=== PATIENT | female | born 1955 | race Caucasian/White ===

== ENCOUNTER 2016-09-09 11:29 | Emergency (ER) | payer OTHER ==
[2016-09-09 12:22] LABS: EOSINOPHIL 0.6 % (0-5); HCT 49.8 % (37.0-47.0); HGB 16.9 g/dl (12.5-16.0); LYMPHOCYTE 17.9 % (15-48); MCH 33.5 pg (25.0-31.0); MCHC 33.9 g/dL (32.0-36.0); MCV 98.6 fL (78.0-100.0); MPV 9.3 fL (6.0-9.5); NEUTROPHIL 62.5 % (41-80); PLT 146 K/uL (150-400); RBC 5.05 M/uL (4.20-5.40); RDW 16.2 % (11.5-14.0); WBC 4.9 K/uL (4.0-10.5)
[2016-09-09 12:37] LABS: CREATININE 0.7 mg/dL (0.5-1.0); POTASSIUM 2.6 mmol/L (3.5-5.1)
[2016-09-09 12:43] LABS: LACTIC ACID 2.9 mmol/L (0.5-2.2)
[2016-09-09 15:17] LABS: BILIRUBIN 2+ mg/dL (NEGATIVE); BLOOD 1+ Ery/uL (NEGATIVE); CLARITY CLEAR (CLEAR); GLUCOSE (U) NORMAL (NORMAL); KETONE (U) 3+ (LARGE) mg/dL (NEGATIVE); LEUKOCYTES NEGATIVE Leu/uL (NEGATIVE); NITRITE NEGATIVE (NEGATIVE); PROTEIN 2+ mg/dL (NEGATIVE); SPECIFIC GRAVITY 1.015 (1.001-1.030)
[2016-09-09 15:18] LABS: COLOR AMBER (YELLOW)
[2016-09-09 15:25] LABS: AMORPHOUS URATES CRYSTALS TRACE; BACTERIA 1+
[2016-09-09 15:26] LABS: GRANULAR CASTS MODERATE
[2016-09-09 19:45] LABS: ALBUMIN 4.2 g/dL (3.4-4.8); BILIRUBIN - DIRECT 0.5 mg/dL (0.0-0.2); BILIRUBIN - TOTAL 2.5 mg/dL (0.1-1.0); GLOBULIN (CALCULATION) 3.3 g/dL (2.2-4.2); TOTAL PROTEIN 7.5 g/dL (6.4-8.3)
== END 2016-09-10 00:46 | disposition other institution (70) ==
LOC: FER 11:29 → FTCU 17:10 → FER 17:10 → FTCU 09-10 00:46
PROVIDERS: Emergency Medicine
DX: I73.9 Peripheral vascular disease, unspecified (principal); E87.6 Hypokalemia; F10.239 Alcohol dependence with withdrawal, unspecified; I10 Essential (primary) hypertension; J44.9 Chronic obstructive pulmonary disease, unspecified; F17.210 Nicotine dependence, cigarettes, uncomplicated; F41.9 Anxiety disorder, unspecified; F32.9 Major depressive disorder, single episode, unspecified
CPT/HCPCS: 36415; 36600; 71010; 80048; 80076; 81001; 82550; 82803; 83605; 85025; 93922; J2060; J3411; J3475

== ENCOUNTER 2020-07-10 15:35 | Inpatient (IN) | payer MEDICARE ==
[~2020-07-10 15:35] MED LIST: ALBUTEROL2.5 MG/3 M NEB; ALENDRONATE SOD70 MG PO; ASPIRIN CHEWABL81 MG PO; BREO ELLIPTA 11 EACH INH; CLARITIN10 MG PO; COZAAR50 MG PO; DULERA 100 MCG8.8 GM INH; DUONEB 2.5-0.5M1 AMP INH; FUROSEMIDE 20MG20 MG PO; K-DUR20 MEQ PO; MEDROL 4MG DOSEP4 MG PO; MIRALAX17 GM PO; NIFEREX150 MG PO; NORCO 5-325 TA1 EACH PO; PANTOPRAZOLE SODIUM PO; PERCOCET 5-3251 EACH PO; PLAVIX75 MG PO; SINGULAIR10 MG PO; TRAZODONE 50MG50 MG PO; ULTRAM50 MG PO; VENTOLIN (2.5 MG/3 M INH; VENTOLIN HFA IN18 GM INH; VITAMIN D3 PO; ZOLOFT50 MG PO; ZOLPIDEM TARTRAT5 MG PO
[2020-07-10 16:17] LABS: BASOPHIL 0.5 % (0-2); EOSINOPHIL 1.3 % (0-7); HGB 11.8 g/dl (12.5-16.0); LYMPHOCYTE 8.6 % (15-48); MCH 28.2 pg (25.0-31.0); MCHC 30.3 g/dL (32.0-36.0); MCV 93.1 fL (78.0-100.0); MONOCYTE 12.1 % (0-12); MPV 10.5 fL (6.0-9.5); NRBC 0; PLT 338 K/uL (150-400); RBC 4.19 M/uL (4.20-5.40); RDW 16.2 % (11.5-14.0); WBC 5.9 K/uL (4.0-10.5)
[2020-07-10 16:20] LABS: INR 1.19 (0.9-1.2); PROTHROMBIN TIME 14.3 SECONDS (11.4-13.6)
[2020-07-10 16:32] LABS: LACTIC ACID 1.3 mmol/L (0.4-1.9)
[2020-07-10 16:40] LABS: ALBUMIN 2.7 g/dL (3.4-5.0); BILIRUBIN - TOTAL 0.4 mg/dL (0.2-1.0); BUN/CREAT RATIO (CALC) 11.5 RATIO; CREATININE 0.52 mg/dL (0.51-0.95); POTASSIUM 2.8 mmol/L (3.5-5.1); PRO-BNP 801 pg/mL (<125); TOTAL PROTEIN 6.7 g/dL (6.4-8.2)
[2020-07-10 20:48] LABS: CORONAVIRUS 2019 SARS-COV-2 NEGATIVE (NEGATIVE); INFLUENZA A NAA NEGATIVE (NEGATIVE)
[2020-07-11 01:13] LABS: BILIRUBIN NEGATIVE (NEGATIVE); BLOOD TRACE-INTACT Ery/uL (NEGATIVE); CLARITY CLEAR (CLEAR); COLOR YELLOW (YELLOW); GLUCOSE (U) NORMAL (NORMAL); LEUKOCYTES NEGATIVE Leu/uL (NEGATIVE); NITRITE POSITIVE (NEGATIVE); PROTEIN NEGATIVE (NEGATIVE); pH 6.5 (5.0-9.0)
[2020-07-11 01:18] LABS: BACTERIA 2+
[2020-07-11 03:10] LABS: BASOPHIL 0.3 % (0-2); EOSINOPHIL 0 % (0-7); HCT 33.7 % (37.0-47.0); HGB 10.3 g/dl (12.5-16.0); LYMPHOCYTE 5.5 % (15-48); MCH 27.9 pg (25.0-31.0); MCHC 30.6 g/dL (32.0-36.0); MCV 91.3 fL (78.0-100.0); MONOCYTE 2.4 % (0-12); MPV 10.8 fL (6.0-9.5); NEUTROPHIL 91.5 % (41-80); NRBC 0; PLT 295 K/uL (150-400); RBC 3.69 M/uL (4.20-5.40); RDW 16.1 % (11.5-14.0)
[2020-07-11 03:18] LABS: WBC 3.3 K/uL (4.0-10.5)
[2020-07-11 03:26] LABS: BUN/CREAT RATIO (CALC) 13.3 RATIO; CREATININE 0.45 mg/dL (0.51-0.95)
[2020-07-11 03:54] LABS: POTASSIUM 4.3 mmol/L (3.5-5.1)
[2020-07-11] MEDS ORDERED: PROTONIX 40MG T40 MG PO (09:21)
[2020-07-11] MEDS ORDERED: CLARITIN10 MG PO (09:21)
[2020-07-11] MEDS ORDERED: VITAMIN D PO (09:23)
[2020-07-12 08:48] LABS: BASOPHIL 0.1 % (0-2); EOSINOPHIL 0.1 % (0-7); HGB 10.3 g/dl (12.5-16.0); LYMPHOCYTE 4.1 % (15-48); MCH 27.8 pg (25.0-31.0); MCHC 30.3 g/dL (32.0-36.0); MCV 91.6 fL (78.0-100.0); MONOCYTE 9.5 % (0-12); MPV 10.7 fL (6.0-9.5); NEUTROPHIL 85.6 % (41-80); NRBC 0; PLT 370 K/uL (150-400); RBC 3.71 M/uL (4.20-5.40); RDW 16.6 % (11.5-14.0)
[2020-07-12 08:50] LABS: WBC 8.7 K/uL (4.0-10.5)
[2020-07-12 09:05] LABS: BUN/CREAT RATIO (CALC) 17.6 RATIO; CREATININE 0.51 mg/dL (0.51-0.95)
--- NOTE | 2020-07-12 15:41 | NUR ---
MET WITH PT. PT. RESIDES IN HER OWN APT. AT [facility]. SHE HAS RECENTLY BEEN ADMITTED TO [facility]. SHE HAS A ROLLATOR, ELECTRIC SCOOTER, ANTOINETTEE. SHE STATES THAT HER BROTHER, MARLENE BANEGAS, WILL PICK HER UP FROM THE HOSPITAL. SHE ALSO RECEIVES MOM'S MEALS. SHE ALSO HAS A SISTER AT [place] WHO TRIES TO HELP WITH FOOD. SHE IS ELDERLY AND IT IS HARD FOR HER BUT SHE DOES TRY. DISCUSSED WITH PT. REGARDING GOING TO A [facility] FACILITY, BUT SHE DECLINES. SHE STATES THAT SHE WANTS TO RETURN HOME. ADVISED HER THAT IF SHE RECONSIDERS TO CONTACT HER HOME MEALT AND THEY WILL ASSIST HER. REFERRAL FOR 06/18 AND A TRAVEL O2 TANK SENT TO [facility] THROUGH [facility].
--- NOTE | 2020-07-12 16:14 | NUR ---
ADVISED NURSE CARVAJAL OF D/C PLAN FOR INTREPID , 06/18 AND O2 TRAVEL TANK.
[2020-07-13] MEDS ORDERED: LEVAQUIN500 MG PO (08:29)
[2020-07-13] MEDS ORDERED: PREDNISONE 20MG20 MG PO (08:29)
[2020-07-13] MEDS ORDERED: MUCINEX 600MG600 MG PO (08:29)
[2020-07-13] MEDS ORDERED: DUONEB 2.5-0.5M1 AMP INH (10:03)
== END 2020-07-13 12:42 | disposition home health service (06) | DRG 189 ==
LOC: FER 15:35 → FMS 19:16
PROVIDERS: Allergy & Immunology Allergy; Emergency Medicine; Nurse Practitioner; ADMIT Internal Medicine
DX: J96.21 Acute and chronic respiratory failure with hypoxia (principal); J44.1 Chronic obstructive pulmonary disease with (acute) exacerbation; N39.0 Urinary tract infection, site not specified; C34.92 Malignant neoplasm of unspecified part of left bronchus or lung; K86.1 Other chronic pancreatitis; J96.22 Acute and chronic respiratory failure with hypercapnia; Z20.822 Contact with and (suspected) exposure to COVID-19; I10 Essential (primary) hypertension; E87.6 Hypokalemia; I73.9 Peripheral vascular disease, unspecified; E53.8 Deficiency of other specified B group vitamins; E86.0 Dehydration; K21.9 Gastro-esophageal reflux disease without esophagitis; M81.0 Age-related osteoporosis without current pathological fracture; Z95.820 Peripheral vascular angioplasty status with implants and grafts; Z90.710 Acquired absence of both cervix and uterus; Z88.8 Allergy status to other drugs, medicaments and biological substances; Z98.890 Other specified postprocedural states; Z92.3 Personal history of irradiation; Z92.21 Personal history of antineoplastic chemotherapy; Z79.82 Long term (current) use of aspirin; Z79.02 Long term (current) use of antithrombotics/antiplatelets; Z79.899 Other long term (current) drug therapy
CPT/HCPCS: 36415; 36600; 70450; 71045; 71275; 80048; 80053; 81001; 82803; 83605; 83735; 83880; 84484; 85025; 85610; 85730; 87040; 93005; 94640; 94667; 94668; 97162; 97166; 97530; 97530-GP; 97535; J0696; J1650; J2930; J7120; J7512; U0002

== ENCOUNTER 2020-07-15 12:29 | Day surgery (SDCO) | payer MEDICARE ==
[~2020-07-15 12:29] MED LIST changes: +LEVAQUIN500 MG PO; +MUCINEX 600MG600 MG PO; +PREDNISONE 20MG20 MG PO; +PROTONIX 40MG T40 MG PO; +VITAMIN D PO
[2020-07-15 12:54] LABS: BASOPHIL 0.3 % (0-2); HCT 41.2 % (37.0-47.0); HGB 12.5 g/dl (12.5-16.0); LYMPHOCYTE 8.1 % (15-48); MCHC 30.3 g/dL (32.0-36.0); MCV 92.2 fL (78.0-100.0); MPV 10.6 fL (6.0-9.5); NEUTROPHIL 75.8 % (41-80); NRBC 0; PLT 345 K/uL (150-400); RBC 4.47 M/uL (4.20-5.40); RDW 16.7 % (11.5-14.0)
[2020-07-15 13:08] LABS: INR 1.1 (0.9-1.2); PROTHROMBIN TIME 13.5 SECONDS (11.4-13.6); PTT 29.6 SECONDS (22.2-34.7)
[2020-07-15 13:19] LABS: ALBUMIN 2.8 g/dL (3.4-5.0); BILIRUBIN - TOTAL 0.5 mg/dL (0.2-1.0); CREATININE 0.5 mg/dL (0.51-0.95); GLOBULIN (CALCULATION) 3.4 g/dL; POTASSIUM 2.9 mmol/L (3.5-5.1); TOTAL PROTEIN 6.2 g/dL (6.4-8.2)
[2020-07-16] MEDS ORDERED: ZOLOFT100 MG PO (09:48)
--- NOTE | 2020-07-16 10:30 | NUR ---
MET WITH PT. TO DISCUSS DC PLANS. SHE ADVISED THAT SHE WOULD LIKE TO TO GO TO [facility]. REFERRAL SENT TO [facility] THROUGH [facility].
--- NOTE | 2020-07-16 15:09 | NUR ---
DUE TO PT. TAKING CHEMO, [facility], CANNOT TAKE HER AT THIS TIME. DISCUSSED THIS WITH DR. BRUCE. HE WILL PUT IN A CONSULT FOR DR. GOODE TO SEE PT. Thursday07/17/2020. TC. ELLIE SOL, NURSE NAVIGATOR. ADVISED HER OF THE SITUATION WITH PT. WANTING TO GO TO [facility] AND STILL RECEIVING CHEMO. SHE WILL ALSO SPEAK WITH DR. GOODE CONCERNING THE SITUATION. ADVISED JAVIER AT [facility] TO ADVISE OF PT. STATUS WITH CHEMO.
[2020-07-17 06:26] LABS: HGB 10.5 g/dl (12.5-16.0); MCH 27.9 pg (25.0-31.0); MCV 93.1 fL (78.0-100.0); MPV 10.9 fL (6.0-9.5); RBC 3.76 M/uL (4.20-5.40); RDW 16.9 % (11.5-14.0); WBC 11.1 K/uL (4.0-10.5)
[2020-07-17 06:48] LABS: BUN/CREAT RATIO (CALC) 16.7 RATIO; CREATININE 0.6 mg/dL (0.51-0.95)
[2020-07-17 06:52] LABS: POTASSIUM 5.6 mmol/L (3.5-5.1)
--- NOTE | 2020-07-17 14:03 | NUR ---
STILL WAITING ON HOME TO RESOLUTION REP PATIENT
--- NOTE | 2020-07-17 14:16 | NUR ---
SPOKE WITH DR. GOODE THIS AM HE IS STOPPING PT CHEMO AT THIS TIME SO THAT SHE MAY GO TO REHAB. PT. HAS CHOSE TO GO TO [facility]. ADVISED JAVIER THAT PT. CHEMO HAS STOPPED FOR THE TIME BEING. J[facility]IER ADVISED THAT HER AUTHORIZATION WAS SUBMITTED YESTERDAY AND THEY ARE AWAITING AUTHORIZATION.
[2020-07-19] MEDS ORDERED: NORCO 5-325 TA1 EACH PO (10:13)
--- NOTE | 2020-07-19 10:13 | NUR ---
PT. HAS BEEN APPROVED FOR ADMISSION TO [facility]. REPORT NUMBER IS [phone] FAX NUMBER IS [phone] PT. REPORTS THAT HER BROTHER WILL TRANSPORT HER TO THE FACILITY. PT. HAS A TRAVEL O2 TANK.
== END 2020-07-19 15:15 ==
LOC: FER 12:29 → FMS 14:39
PROVIDERS: Emergency Medicine; Hospitalist; ADMIT Allergy & Immunology Allergy
DX: J96.21 Acute and chronic respiratory failure with hypoxia (principal); J96.22 Acute and chronic respiratory failure with hypercapnia; C34.92 Malignant neoplasm of unspecified part of left bronchus or lung; J44.1 Chronic obstructive pulmonary disease with (acute) exacerbation; J98.19 Other pulmonary collapse; E87.6 Hypokalemia; I73.9 Peripheral vascular disease, unspecified; K21.9 Gastro-esophageal reflux disease without esophagitis; I10 Essential (primary) hypertension; M81.0 Age-related osteoporosis without current pathological fracture; E86.0 Dehydration; Z87.891 Personal history of nicotine dependence; Z79.82 Long term (current) use of aspirin; Z79.02 Long term (current) use of antithrombotics/antiplatelets; Z79.899 Other long term (current) drug therapy; Z88.8 Allergy status to other drugs, medicaments and biological substances; Z95.820 Peripheral vascular angioplasty status with implants and grafts; Z99.81 Dependence on supplemental oxygen; Z20.822 Contact with and (suspected) exposure to COVID-19
CPT/HCPCS: 36415; 36600; 71045; 80048; 80053; 82803; 84484; 85025; 85610; 85730; 93005; 94640; 97166; 97535; G0378; J2930; J8540; U0002

== ENCOUNTER 2020-08-31 15:27 | Inpatient (IN) | payer MEDICARE, OTHER ==
[~2020-08-31] VITALS: Ht 152.4 cm; Wt 55.5 kg
[~2020-08-31 15:27] MED LIST changes: +ZOLOFT100 MG PO
[2020-08-31 17:05] LABS: BASOPHIL 0.4 % (0-2); EOSINOPHIL 0.2 % (0-7); HCT 31.1 % (37.0-47.0); HGB 9.4 g/dl (12.5-16.0); LYMPHOCYTE 5.4 % (15-48); MCH 27.1 pg (25.0-31.0); MCHC 30.2 g/dL (32.0-36.0); MCV 89.6 fL (78.0-100.0); MONOCYTE 14.7 % (0-12); MPV 10.2 fL (6.0-9.5); NEUTROPHIL 77.3 % (41-80); NRBC 0; PLT 393 K/uL (150-400); RBC 3.47 M/uL (4.20-5.40); RDW 18.6 % (11.5-14.0)
[2020-08-31 17:19] LABS: ALBUMIN 2.1 g/dL (3.4-5.0); BILIRUBIN - TOTAL 0.7 mg/dL (0.2-1.0); BUN/CREAT RATIO (CALC) 29.3 RATIO; CREATININE 0.41 mg/dL (0.51-0.95); GLOBULIN (CALCULATION) 4.5 g/dL; POTASSIUM 4.5 mmol/L (3.5-5.1); TOTAL PROTEIN 6.6 g/dL (6.4-8.2)
[2020-08-31 17:26] LABS: PRO-BNP 679 pg/mL (<125)
[2020-08-31 20:42] LABS: CORONAVIRUS 2019 SARS-COV-2 NEGATIVE (NEGATIVE); INFLUENZA A NAA NEGATIVE (NEGATIVE)
[2020-09-01 06:10] LABS: BASOPHIL 0.3 % (0-2); EOSINOPHIL 0.1 % (0-7); HCT 26.3 % (37.0-47.0); HGB 7.9 g/dl (12.5-16.0); LYMPHOCYTE 3.3 % (15-48); MCH 27.1 pg (25.0-31.0); MCV 90.1 fL (78.0-100.0); MONOCYTE 6.2 % (0-12); MPV 10.3 fL (6.0-9.5); NEUTROPHIL 88.3 % (41-80); NRBC 0; PLT 352 K/uL (150-400); RBC 2.92 M/uL (4.20-5.40); RDW 18.4 % (11.5-14.0); WBC 7.2 K/uL (4.0-10.5)
[2020-09-01 06:35] LABS: IRON % SATURATION 8.8 %SAT (20-50)
[2020-09-01 06:59] LABS: CREATININE 0.4 mg/dL (0.51-0.95); FOLIC ACID (SERUM) 12.1 ng/mL (8.6-58.9); POTASSIUM 3.9 mmol/L (3.5-5.1)
--- NOTE | 2020-09-01 10:55 | NUR ---
PT LIVES AT [place] ALONE. [facility] HAS [facility] O2 AND A WALKER.
[2020-09-02 05:59] LABS: HCT 25.7 % (37.0-47.0); HGB 7.9 g/dl (12.5-16.0); MCHC 30.7 g/dL (32.0-36.0); MCV 87.7 fL (78.0-100.0); MPV 10.2 fL (6.0-9.5); RBC 2.93 M/uL (4.20-5.40); RDW 18.3 % (11.5-14.0); WBC 8.6 K/uL (4.0-10.5)
[2020-09-02 06:22] LABS: BUN/CREAT RATIO (CALC) 44.8 RATIO; CREATININE 0.29 mg/dL (0.51-0.95); POTASSIUM 3.9 mmol/L (3.5-5.1)
--- NOTE | 2020-09-02 22:00 | NUR ---
1914 REPORT RECEIVED FROM Lenore RINCON RN. CARE ASSUMED.
--- NOTE | 2020-09-03 13:33 | NUR ---
MET WITH PT. SHE WOULD LIKE TO GO BACK TO [facility]. PT. SIGNED CHOICE FORM. ADVISED JAVIER AT [facility] OF REFERRAL. SHE REQUESTED THAT I FAX THE INFORAMTION SHE DOES NOT HAVE ACCESS TO [facility] TODAY. FAXED HER INFORMATION TO [phone].
--- NOTE | 2020-09-03 20:40 | NUR ---
RT ARRIVED AT BEDSIDE TO TURN OFF BREATHING TX. PATIENT HAD TAKEN OFF. MORE SOA, MORE DISTRESSED. HR 130s. PATIENT HOME ALBUTEROL INHALER IN BED WITH HER, STATED SHE TOOK IT TOO ALONG WITH SCHEDULED DUONEB/PULMICORT NEB. EDUCATED PATIENT TO NOT TAKE HOME INHALERS WHILE ON SCHEDULED BREATHING TXs. PATIENT BECAME MORE TACHYPNEIC, DIAPHORETIC. PATIENT REFUSED TO BE SAT UP IN BED. PATIENT HAD COARSE BREATH SOUNDS PRIOR AND NOW HAS INCREASED INSP WHEEZES THROUGHOUT, INCREASED AIR MOVEMENT. PATIENT HR INCREASED TO 180s. RN/DIRECTOR ECONOMIC AT BEDSIDE. RELAYED INFO OF PATIENT TAKING HOME INHALER WELL. EKG OBTAINED AND GIVEN TO DIRECTOR ECONOMICEdith BALDERAS. RN TURNED PATIENT HOME O2 DOWN FROM 3L TO 2L STATES PATIENT WAS 100% ON MONITOR. PATIENT DOES HAVE COPD. NO ABG OBTAINED YET THIS ADMISSION. PATIENT WAS 92% WHEN RT LAST CHECKED PATIENT PREVIOUSLY. DIRECTOR ECONOMIC GIVEN ORDERS TO RN. WILL CONTINUE TO MONITOR PATIENT. SUGGESTED TO DIRECTOR ECONOMIC PATIENT SWITCHED TO XOPENEX NEB.
[2020-09-03 21:23] LABS: MAGNESIUM 1.8 mg/dL (1.8-2.4); PHOSPHORUS 3.6 mg/dL (2.6-4.7)
--- NOTE | 2020-09-03 23:46 | NUR ---
PATIENT MOVED TO ICU 2 W/O INCIDENT ON 2LNC BACK ON 3LNC. PATIENT HR BACK INTO 150s. PATIENT SOA. INCREASED AERATION WITH XOPENEX TREATMENT. RT STAYED AT BEDSIDE DURING TX AND HR STAYED THE SAME.
--- NOTE | 2020-09-04 00:03 | NUR ---
THE PATIENT BECAME TACHYCARDIC ON THE MONITOR AT A RATE OF 185 BPM. UPON ENTERING THE ROOM TO CHECK ON THE PATIENT I WAS ABLE TO SPEAK WITH RT WHO TOLD ME THAT MRS DYKES HAD USED HER PERSONAL ALBUTEROL INHALER AND THEN ALSO RECIEVED HER SCHEDULED ALBUTEROL TREATMENT WELL. UPON FURTHER ASSESSMENT OF MRS DYKES I FOUND HER TO BE COOL AND CLAMMY, QUITE DIAPHORETIC, PALE AND VERY RESTLESS. JOHN LOOMIS APRN WAS NOTIFIED AND ALSO CAME TO SEE THE PT AT THIS TIME. EDUCATION ABOUT NOT USING HER PERSONAL INHALER OCCURED. AN EKG, LABS, AND NEW MEDICATIONS WERE ORDERED. I ADMINISTERED LASIX WELL 5MG OF LOPRESSOR PUSHED SLOWLY UNDILUTED. AT THE TIME OF ADMINIOSTRATION MRS JOE BP WAS 146/98 WITH A SUSTAINED HR OF 135. AFTER ADMINISTRATION AT 2148 HER BP DECREASED TO 104/78 AND HER HR TO 51. WITHIN AN HOUR OF ADMINISTRATION HER HR WAS BACK UP IN THE 150S AND HER O2 SATS HAD BEGUN TO FALL INTO THE LOW 80S DESPITE OXYGEN DELIVERY. RT WAS AGAIN CALLED FOR A BREATHING TX OF XOPENEX AND MRS DYKES WAS TRANSFERED TO THE ICU AT THIS TIME FOR A HIGHER LEVEL OF CARE.
--- NOTE | 2020-09-04 00:47 | NUR ---
PATIENT ARRIVED TO ICU AT 2330 VIA STRECHER PATIENT COOL TO TOUCH, DIAPHORTIC, HEART RATE IN 150S. APICULTURIST AT BED SIDE. NEW ORDERS OBTAINED. ABLE TO MAKE NEEDS KNOWN BED IN LOW POSITION LACKED AND CALL LIGHT IN REACH.
--- NOTE | 2020-09-04 03:50 | NUR ---
COUNTER CONTROL OPERATOR NOTIFIED OF BLOOD PRESSURES REMAINIG LOW.NO NEW ORDERS AT THIS TIME WILL CONTINUE TO MONITIOR.
[2020-09-04 08:29] LABS: BASOPHIL 0.2 % (0-2); EOSINOPHIL 0 % (0-7); HCT 28.5 % (37.0-47.0); HGB 8.5 g/dl (12.5-16.0); LYMPHOCYTE 2.7 % (15-48); MCH 26.8 pg (25.0-31.0); MCHC 29.8 g/dL (32.0-36.0); MCV 89.9 fL (78.0-100.0); MONOCYTE 2.6 % (0-12); MPV 10.2 fL (6.0-9.5); NEUTROPHIL 90.6 % (41-80); NRBC 0; PLT 324 K/uL (150-400); RBC 3.17 M/uL (4.20-5.40); RDW 18.2 % (11.5-14.0); WBC 12.4 K/uL (4.0-10.5)
[2020-09-04 08:53] LABS: BUN/CREAT RATIO (CALC) 35.6 RATIO; CREATININE 0.59 mg/dL (0.51-0.95); POTASSIUM 3.8 mmol/L (3.5-5.1)
[2020-09-05 05:40] LABS: BASOPHIL 0.2 % (0-2); EOSINOPHIL 0 % (0-7); HCT 27.5 % (37.0-47.0); HGB 8.4 g/dl (12.5-16.0); LYMPHOCYTE 3.4 % (15-48); MCH 26.8 pg (25.0-31.0); MCHC 30.5 g/dL (32.0-36.0); MCV 87.6 fL (78.0-100.0); MONOCYTE 7.9 % (0-12); MPV 10.6 fL (6.0-9.5); NEUTROPHIL 86.6 % (41-80); NRBC 0; PLT 287 K/uL (150-400); RBC 3.14 M/uL (4.20-5.40); RDW 18.7 % (11.5-14.0); WBC 12.2 K/uL (4.0-10.5)
[2020-09-05 06:23] LABS: BUN/CREAT RATIO (CALC) 45.2 RATIO; CREATININE 0.42 mg/dL (0.51-0.95); POTASSIUM 4.2 mmol/L (3.5-5.1)
--- NOTE | 2020-09-05 15:12 | NUR ---
HAD TO HAVE THE PT/OT EVAL FOR JAVIER AT [facility] TO SUBMIT THE AUTH REQUEST. FAXED THE PT/OT EVAL TO JAVIER AT [facility].
[2020-09-06 09:16] LABS: BASOPHIL 0.2 % (0-2); EOSINOPHIL 0.2 % (0-7); HCT 29.4 % (37.0-47.0); HGB 8.8 g/dl (12.5-16.0); LYMPHOCYTE 6.1 % (15-48); MCH 26.7 pg (25.0-31.0); MCHC 29.9 g/dL (32.0-36.0); MCV 89.4 fL (78.0-100.0); MONOCYTE 9.9 % (0-12); MPV 9.9 fL (6.0-9.5); NEUTROPHIL 81.2 % (41-80); NRBC 0.2; PLT 227 K/uL (150-400); RBC 3.29 M/uL (4.20-5.40)
[2020-09-06 09:54] LABS: BILIRUBIN - TOTAL 0.4 mg/dL (0.2-1.0); CREATININE 0.4 mg/dL (0.51-0.95); GLOBULIN (CALCULATION) 3.7 g/dL; POTASSIUM 3.5 mmol/L (3.5-5.1); TOTAL PROTEIN 5.7 g/dL (6.4-8.2)
--- NOTE | 2020-09-06 15:30 | NUR ---
PUREWICK CATHETER CHANGED AT THIS TIME. RENEA AREA CLEANSED & PATTED DRY PRIOR TO NEW CATHETER PLACEMENT. HOOKED TO WALL SUCTION AT 50 MMHG. NO S/S SKIN BREAKDOWN TO VAGINAL/RENEA AREAS. WILL MONITOR.
--- NOTE | 2020-09-07 10:46 | NUR ---
[facility] IS HAVING TO APPEAL PT. INSURANCE FOR PENITENTIARY. IN THE MEANTIME I MET [facility] PT. TO DISCUSS GOING TO TO [facility] MEDICAID PENDING. PT. IS WILLING TO GO TO [facility] MEDICAID PENDING. ADVISED JAVIER AND YAZ AT [facility]. THEY HAVE ASKED TO COME TO THE FACILITY TO INTERVIEW THE PT AND TO SIGN PAPERWORK FOR THE MEDICAID PENDING. TC TO SHARMILA, DRUM CARRIER. SHE IS IN AGREEMENT TO ALLOW THEM TO MEET WITH PT. SHE WILL ADVISE THE SCREENER AT THE FRONT DOOR. ADVISED JAVIER THEY WILL BE ALLOWED TO COME TO THE FACILITY. ADVISED PT. THAT JAVIER AND YAZ ARE COMING TO THE FACILITY TO SPEAK WITH HER. PT IN AGREEMENT.
--- NOTE | 2020-09-07 11:20 | NUR ---
PER YAZ AND JAVIER THEY MET WITH PT. AND SHE AGREED TO COME TO [facility] MEDICAID PENDING. ADVISED DR. ORTIZ AND NURSE, AIDAN. PER DR. ORTIZ HE IS SENDING HER BY AMBULANCE.
--- NOTE | 2020-09-07 11:57 | NUR ---
PER PT SHE ASKED I NOTIFY HER BROTHER MR. BANEGAS OF HER PLACEMENT AT [facility]. TC TO MR. BANEGAS ADVISED OF D/C TO [facility] THIS DAY.
[2020-09-07] MEDS ORDERED: NASAL DECONGEST30 M3 (12:31)
[2020-09-07] MEDS ORDERED: DIGITEK125 MCG PO (12:31)
[2020-09-07] MEDS ORDERED: XOPENEX (11.25 MG/3 NEB (12:31)
[2020-09-07] MEDS ORDERED: LOPRESSOR25 MG PO (12:31)
[2020-09-07] MEDS ORDERED: FUROSEMIDE 20MG20 MG PO (12:31)
[2020-09-07] MEDS ORDERED: AUGMENTIN 500-1 EACH PO (12:33)
[2020-09-07] MEDS ORDERED: IPRATROPIU0.2 MG/1 M INH (12:35)
--- NOTE | 2020-09-07 13:56 | NUR ---
CALL REPORT TO [facility] AT [phone] FOR REPORT FAX D/C SUMMARY TO [phone].
--- NOTE | 2020-09-07 14:14 | NUR ---
MESSAGE FROM JAVIER AT [facility] IF D/C SUMMARY CAN'T BE AT THE FACILITY BY 4:30 P.M. PT WILL NEED TO WAIT UNTIL 7:00 P.M. ADVISED NURSE, AIDAN.
== END 2020-09-07 16:45 | DRG 190 ==
LOC: FER 15:27 → FMS 19:40 → FICU 19:40 → FMS 09-02 18:15 → FICU 09-03 23:24 → FTCU 09-05 08:54 → FMS 09-06 12:36
PROVIDERS: Allergy & Immunology Allergy; Emergency Medicine; Emergency Medicine Emergency Medical Services; Nurse Practitioner; ADMIT Hospitalist
DX: J44.1 Chronic obstructive pulmonary disease with (acute) exacerbation (principal); I21.A1 Myocardial infarction type 2; J81.0 Acute pulmonary edema; J98.11 Atelectasis; C34.92 Malignant neoplasm of unspecified part of left bronchus or lung; D50.9 Iron deficiency anemia, unspecified; D53.9 Nutritional anemia, unspecified; I10 Essential (primary) hypertension; K21.9 Gastro-esophageal reflux disease without esophagitis; Z20.822 Contact with and (suspected) exposure to COVID-19; Z51.5 Encounter for palliative care; Z66 Do not resuscitate; I48.0 Paroxysmal atrial fibrillation; I95.9 Hypotension, unspecified; I27.20 Pulmonary hypertension, unspecified; L89.611 Pressure ulcer of right heel, stage 1; Z92.3 Personal history of irradiation; Z90.710 Acquired absence of both cervix and uterus; Z95.820 Peripheral vascular angioplasty status with implants and grafts; Z90.89 Acquired absence of other organs; Z98.890 Other specified postprocedural states; Z88.8 Allergy status to other drugs, medicaments and biological substances; Z86.16 Personal history of COVID-19
CPT/HCPCS: 36415; 71045; 71046; 71275; 80048; 80053; 82607; 82746; 83540; 83550; 83605; 83735; 83880; 84100; 84145; 84484; 85025; 85379; 87040; 93005; 94640; 94668; 94760; 97163; 97166; 97530-GP; C9113; J1160; J1642; J1650; J1940; J1956; J2916; J2930; J7040; J7120; J7512; Q9967; U0002